=== PATIENT | male | born 1955 | race Caucasian/White ===

== ENCOUNTER 2021-07-06 03:26 | Outpatient (CLI) | payer MEDICARE, SELFPAY ==
[2021-07-06 09:34] LABS: Calculated LDL 149 mg/dL (<100); Cholesterol 221 mg/dL (<200); Glucose 92 mg/dL (74-106); HDL Cholesterol 43 mg/dL (40-60); Triglyceride 145 mg/dL (<150)
== END 2021-07-06 03:27 | disposition home or self-care (01) ==
LOC: LBO 03:26
PROVIDERS: PCP Family Medicine; Visit Provider Family Medicine
DX: R73.9 Hyperglycemia, unspecified (principal); E78.5 Hyperlipidemia, unspecified
CPT/HCPCS: 36415; 80061; 82947

== ENCOUNTER 2023-06-19 06:44 | Emergency (ER) | payer MEDICARE, SELFPAY ==
[2023-06-19 06:51] VITALS: BP 171/82; PULSE 80; RESP 16; TEMP 36.5; O2SAT 98
--- NOTE | 2023-06-19 07:00 | DI.RAD_ITS ---
Exam(s) XR TIB/FIB LT EXAM: XR TIB/FIB LT CLINICAL HISTORY: pain swelling s/p fall. TECHNIQUE: 2D digital imaging was performed. Two views. COMPARISON: CR,XR XR ANKLE LT COMPLETE from 06/19/2023 FINDINGS: BONES: Mildly displaced fracture of the proximal 3rd of the fibula. No fractures visualized in the t ibia. No bony destructive lesion is seen. Visualized portion of knee and ankle joints are unremarkab le. The joint spaces are maintained. SOFT TISSUE: Swelling. IMPRESSION: Mildly displaced proximal fibular fracture. DATA REPOSITORY: RADIATION DOSE DELIVERED:
--- NOTE | 2023-06-19 07:00 | DI.RAD_ITS ---
Exam(s) XR ANKLE LT COMPLETE EXAM: XR ANKLE LT COMPLETE CLINICAL HISTORY: pain swelling s/p fall TECHNIQUE: 2D digital imaging was performed. Three views. COMPARISON: CR LEFT ANKLE COMPLETE from 07/25/2009 CR,XR XR TIB/FIB LT from 06/19/2023 FINDINGS: BONES: No acute fracture is present. No bony destructive lesion is seen. Heel spurs. JOINTS:The ankle mortise is normally aligned. Tibiotalar joint space is maintained. SOFT TISSUE: swelling around the malleoli. Mild vascular calcifications. IMPRESSION: Unremarkable soft tissue swelling. No evidence of fracture or ankle mortise widening. DATA REPOSITORY: RADIATION DOSE DELIVERED:
--- NOTE | 2023-06-19 07:06 | W.ED.GENAD ---
Discharge Plan Disposition Patient Disposition: Home Condition: Stable Discharge Details Chief Complaint: Orthopedic Clinical Impression: Closed left fibular fracture Primary Care Provider: Evgeny Krause ED Provider: Mati Price Discharge Instructions Additional Instructions: You broke the fibula in your leg You can weight-bear as tolerated When you are sitting or laying down you are okay to take your foot out of the walking boot to do range of motion of the ankle and foot Call orthopedics to arrange a follow-up appointment You can take Tylenol and ibuprofen as needed, follow dosing instructions on packaging If you feel more ill, have severe worsening pain, return to the emergency department Referrals: Tomás Betts MD [ [facility] STAFF PHYSICIAN] - [facility] General Mode of arrival: ambulatory. Date/Time Provider Initiated Documentation: 06/19/23 06:48. Limitations to Documentation: no limitations. Information obtained by: patient. History of Present Illness 68 year old M presents to the emergency department with the chief complaint of left ankle pain, described as moderate, Patient reports no radiation. Patient started experiencing this day(s) (6) and it has been constant. Rest improves symptom(s), Movement worsens symptoms . Patient notes no other symptoms.. Patient did receive the following treatments prior to arrival, none Related Data Allergies Allergy/AdvReac Type Severity Reaction Status Date / Time No Known Allergies Allergy Verified 06/19/23 07:05 General Stated Complaint: Orthopedic BRIGHT: 4 Review of Systems All systems reviewed & are unremarkable except as noted in HPI and below Constitutional Constitutional: Denies chills, Denies fever(s) and Denies weakness Cardiovascular Cardiovascular: Denies chest pain and Denies dyspnea Respiratory Respiratory: Denies cough and Denies dyspnea Gastrointestinal Gastrointestinal: Denies abdominal pain, Denies nausea and Denies vomiting Musculoskeletal Musculoskeletal: Reports stiffness Neurologic Neurologic: Denies weakness Exam Const General: no acute distress Orientation: alert HENMT Head: normal to inspection Ears: external ears normal General nose exam: external nose normal Mouth: moist mucous membranes Eyes General: appearance normal, both eyes and all related structures Neck Neck: normal visual inspection Resp Effort & Inspection: normal respiratory effort and able to speak in complete sentences Cardio Rate: regular rate Skin General skin exam: no rashes or lesions noted Neuro General: patient alert and patient oriented x3 Extrem General: full ROM and capillary refill normal Psych Mental Status: mental status grossly normal Course Vital Signs Vital signs: Vital Signs Temperature 36.5 C 06/19/23 06:51 Pulse 80 06/19/23 06:51 Respiratory Rate 16 06/19/23 06:51 Blood Pressure 171/82 H 06/19/23 06:51 Pulse Oximetry 98 06/19/23 06:51 Temperature 36.5 C 06/19/23 06:51 Temperature Source Tympanic 06/19/23 06:51 Pulse 80 06/19/23 06:51 Respiratory Rate 16 06/19/23 06:51 Respiratory Effort Normal, Non-Labored 06/19/23 06:56 Blood Pressure 171/82 H 06/19/23 06:51 Pulse Oximetry 98 06/19/23 06:51 Oxygen Delivery Method Room Air 06/19/23 06:51 Oxygen Flow Rate 0 06/19/23 06:51 Medical Decision Making 68-year-old male with no significant past medical history, comes in with 6 days of left ankle pain. States last he was getting out of his truck when he slipped on ice and twisted his left ankle. Denies hitting his head or loss of consciousness. He had some left ankle stiffness and swelling along with some discomfort with ambulation since then so came here today for evaluation. He is able to bear weight though is in pain in the left ankle when he does so. He is alert and oriented x 4 in no distress on arrival. Denies any headache, chest pain, back pain, abdominal pain. His left ankle is bruised and swollen, has some tenderness over the lateral malleolus. He does have full range of motion with plantar and dorsiflexion at the ankle. No tenderness in the left foot and has normal pulses and sensation. No calf tenderness, performed Kang test and does have plantarflexion when the calf is squeezed. Suspect ankle sprain, will obtain xrays to evalaute for possible fracture X-ray shows fibula fracture, did discuss the imaging and case with Dr. Betts, he recommended a walking boot with weightbearing as tolerated and we will follow-up with him next week. Patient stable, return precautions given Differential Diagnosis Differential Diagnosis: sprain,strain,fracture Imaging Data Radiologic Study: Attestation: I personally reviewed and interpreted this imaging study as follows: Imaging: X-Ray My impression: xrays show mid fibula fracture Quality:SDOH Health Related Social Needs: No Data to Display PFSH All Active Problems (Updated 06/19/23 @ 08:01 by Mati Price MD) Closed left fibular fracture (Acute) Preventative health care (Acute) Erectile dysfunction (Acute) Bradycardia (Acute) Surgical History Arthroplasty of knee RIGHT Family History Mother No problems noted. Father , age of 80 No problems noted. Sister No problems noted. Sister No problems noted. Sister No problems noted. Brother No problems noted. Brother No problems noted. Son No problems noted. Daughter , age of 9 No problems noted. Maternal Grandfather , age of 67 No problems noted. Paternal Grandfather , age of 85 No problems noted. Maternal Grandmother , age of 88 No problems noted. Paternal Grandmother , age of 70 No problems noted. Social History (Updated 10/05/22 @ 12:40 by Lisbeth Cr) Smoking/Tobacco Use Status: Current-Occasional Tobacco Type: cigarettes Quit status: considering quitting Second Hand Exposure: Yes Smoking risk assessment performed?: Yes Alcohol Intake: current Alcohol Intake frequency: a few times a month Alcohol type: beer Drug use: Never Substance use type: does not use Caregiver/Support person: No Foster care: No Household members: spouse Housing: house Communication Needs: Hard of Hearing Do you need help understanding health information?: Never Pets and animals: No Sexually active: Yes Do you think of yourself as: straight/heterosexual Current gender identity: male What is your relationship status?: How often do you talk on the phone with friends or family?: once per week How often do you get together with friends or relatives?: once per week How often do you attend jewish or christianity services?: decline to answer Do you belong to any clubs or organized social groups?: no Panel score (0-1 are the most socially isolated patients): 1 What type of physical activity do you participate in: walking Duration: 15-30 minutes/day Frequency: 5-6 times per week Chanelle/Jewish: Latter-Day Special chanelle needs: No Seatbelt use: sometimes Helmet use: No Drive intox or ride w/intox driver recruiter: No Victim of physical abuse: No Victim of emotional abuse: No Victim of sexual abuse: No Would you like helpful sources: No
[2023-06-19 08:09] VITALS: PULSE 70; TEMP 36.5
--- NOTE | 2023-06-19 08:37 | DI.VRAD_ITS ---
PROCEDURE INFORMATION: Exam: XR Left Ankle Exam date and time: 06/19/2023 7:32 AM Age: 68 years old Clinical indication: Ankle; Left; Patient HX: Pain/swelling S/P fall TECHNIQUE: Imaging protocol: Radiologic exam of the left ankle. Views: 3 or more views. COMPARISON: No relevant prior studies available. FINDINGS: Bones/joints: There is a faint linear calcific density inferior to the tip of the medial malleolus and a punctate calcific density inferior to the tip of the lateral malleolus, possible tiny avulsion-type fractures. Alignment is anatomic. Joint spaces are maintained. There is a small enthesophyte at the Achilles insertion on the posterior calcaneus. Soft tissues: Diffuse soft tissue swelling. IMPRESSION: Possible tiny avulsion fractures of the medial and lateral malleoli in the left ankle, with diffuse soft tissue swelling. Dictated and Authenticated by: Brynn Ball MD. Ordering:JOSE MARTIN Thorne MD
--- NOTE | 2023-06-19 08:38 | DI.VRAD_ITS ---
PROCEDURE INFORMATION: Exam: XR Left Tibia and Fibula Exam date and time: 06/19/2023 7:35 AM Age: 68 years old Clinical indication: Lower leg; Left; Patient HX: Pain/swelling S/P fall TECHNIQUE: Imaging protocol: Radiologic exam of the left tibia and fibula. Views: 2 views. COMPARISON: CR XR ANKLE LT COMPLETE 06/19/2023 7:32 AM FINDINGS: Bones/joints: There is a slightly comminuted fracture of the proximal shaft of the fibula. The dominant distal fracture fragment is displaced laterally by 5 mm and posteriorly by 3 mm. No fracture is identified in the tibia. Soft tissues: No acute abnormality. Small calcified phleboliths are noted. IMPRESSION: Mildly displaced fracture of the proximal left fibula. Dictated and Authenticated by: Brynn Ball MD. Ordering:JOSE MARTIN Thorne MD
--- NOTE | 2023-06-26 15:08 | NUR.NOTE ---
Accessed chart to print provider note at their request for [facility] billing. Nursing Note:
== END 2023-06-19 08:09 | disposition home or self-care (01) ==
PROVIDERS: Emergency Provider Emergency Medicine; PCP Family Medicine
DX: S82.832A Other fracture of upper and lower end of left fibula, initial encounter for closed fracture (principal); W00.0XXA Fall on same level due to ice and snow, initial encounter; Y93.01 Activity, walking, marching and hiking; Y92.015 Private garage of single-family (private) house as the place of occurrence of the external cause
CPT/HCPCS: 99283; 73590; 73610

== ENCOUNTER 2023-06-27 14:41 | Outpatient (CLI) | payer MEDICARE, SELFPAY ==
--- NOTE | 2023-06-27 09:30 | DI.RAD_ITS ---
Exam(s) XR TIB/FIB LT EXAM: XR TIB/FIB LT CLINICAL HISTORY: F/U FRACTURE. TECHNIQUE: 2D digital imaging was performed. COMPARISON: CR,XR XR TIB/FIB LT from 06/19/2023 FINDINGS: Two views. The mildly displaced fracture in the fibula appears unchanged. No further displacement. No fractures of the tibia. IMPRESSION: Stable appearance at the fibular fracture site. DATA REPOSITORY: RADIATION DOSE DELIVERED:
--- NOTE | 2023-06-27 09:30 | DI.RAD_ITS ---
Exam(s) XR ANKLE LT COMPLETE EXAM: XR ANKLE LT COMPLETE CLINICAL HISTORY: F/U FRACTURE. TECHNIQUE: 2D digital imaging was performed. COMPARISON: CR,XR XR ANKLE LT COMPLETE from 06/19/2023 FINDINGS: 3 views There is a very subtle irregularity in the posterior malleolus of the distal tibia seen on the latera l view, unchanged from 06/19/2023. Can not exclude a subtle posterior malleolus fracture. There is no obvious widening of the ankle mortise on these nonstress views. Talar dome appears unremarkable. Tiny inferior calcaneal spur. Calcification also noted at the Achilles insertion on the posterior c alcaneus. IMPRESSION: Possible very subtle fracture of the posterior malleolus. Correlation with site of tenderness is rec ommended. There does appear to be swelling around the ankle. DATA REPOSITORY: RADIATION DOSE DELIVERED:
== END 2023-06-27 14:42 | disposition home or self-care (01) ==
LOC: DIORS 14:42
PROVIDERS: PCP Family Medicine; Visit Provider Physician Assistant
DX: S82.402A Unspecified fracture of shaft of left fibula, initial encounter for closed fracture (principal); W01.0XXA Fall on same level from slipping, tripping and stumbling without subsequent striking against object, initial encounter
CPT/HCPCS: 99213; 73590; 73610

== ENCOUNTER 2023-07-19 09:33 | Outpatient (CLI) | payer MEDICARE, SELFPAY ==
--- NOTE | 2023-07-19 09:15 | DI.RAD_ITS ---
Exam(s) XR TIB/FIB LT EXAM: XR TIB/FIB LT CLINICAL HISTORY: F/U L FIB FRACTURE. TECHNIQUE: 2D digital imaging was performed. COMPARISON: CR XR TIB/FIB LT from 06/27/2023 FINDINGS: Two views. The previously described mildly displaced fibular fracture site appears unchanged. No further displa cement. No callus formation evident. No additional fractures evident in the fibula and tibia. IMPRESSION: Stable appearance DATA REPOSITORY: RADIATION DOSE DELIVERED:
== END 2023-07-19 09:34 | disposition home or self-care (01) ==
LOC: DIORS 09:33
PROVIDERS: PCP Family Medicine; Referring Provider Family Medicine; Visit Provider Physician Assistant
DX: S82.402D Unspecified fracture of shaft of left fibula, subsequent encounter for closed fracture with routine healing; X58.XXXD Exposure to other specified factors, subsequent encounter
CPT/HCPCS: 99213; 73590

== ENCOUNTER 2023-08-07 05:10 | Outpatient (CLI) | payer MEDICARE, SELFPAY ==
[2023-08-08 19:20] LABS: Calculated LDL 146 mg/dL (<100); Cholesterol 240 mg/dL (<200); HDL Cholesterol 50 mg/dL (40-60); Triglyceride 223 mg/dL (<150)
== END 2023-08-07 05:11 | disposition home or self-care (01) ==
LOC: LOS 05:10
PROVIDERS: PCP Family Medicine; Visit Provider Family Medicine
DX: E78.5 Hyperlipidemia, unspecified (principal)
CPT/HCPCS: 36415; 80061

== ENCOUNTER 2025-02-05 00:08 | Outpatient (CLI) | payer MEDICARE, SELFPAY ==
[2025-02-05 14:39] LABS: AST 21 U/L (15-37); Calculated LDL 79 mg/dL (<100); Cholesterol 141 mg/dL (<200); Glucose 94 mg/dL (74-106); HDL Cholesterol 44 mg/dL (>or=40); Triglyceride 91 mg/dL (<150)
== END 2025-02-05 00:09 | disposition home or self-care (01) ==
LOC: LOS 00:08
PROVIDERS: PCP Family Medicine; Visit Provider Family Medicine
DX: E78.5 Hyperlipidemia, unspecified (principal); R73.9 Hyperglycemia, unspecified
CPT/HCPCS: 36415; 80061; 82947; 84450